=== PATIENT | male | born 1975 | race Caucasian/White ===

== ENCOUNTER 2024-04-28 14:32 | Inpatient (IN) | payer OTHER, MEDICAID ==
[~2024-04-28] VITALS: Ht 172.7 cm; Wt 75.7 kg
[2024-04-28 14:35] VITALS: BP_SYST 146; PULSE 135; RESP 26; TEMP 98.3; O2SAT 98
[2024-04-28] MEDS: MORPHINE 4 MG INJ. 4 MG/ML VIAL IM ONE (14:52)
[2024-04-28 15:06] LABS: BASOPHILS % (AUTO) 0.6 % (0.0-2.0); EOSINOPHILS # (AUTO) 0.1 K/uL (0.0-0.4); EOSINOPHILS % (AUTO) 1.3 % (0.0-4.0); HEMATOCRIT 36.9 % (36-54); HEMOGLOBIN 12.9 g/dL (14.0-18.0); LYMPHOCYTES # (AUTO) 0.7 K/uL (1.0-5.5); LYMPHOCYTES % (AUTO) 12.7 % (20.5-51.5); MEAN CORPUSCULAR HEMOGLOBIN 35 pg (27-31); MEAN CORPUSCULAR HGB CONC 35 % (32-36); MEAN CORPUSCULAR VOLUME 101 fL (79.0-98.0); MONOCYTES # (AUTO) 0.2 K/uL (0.0-1.0); MONOCYTES % (AUTO) 2.9 % (1.7-9.3); NEUTROPHILS # (AUTO) 4.9 K/uL (1.8-7.7); NEUTROPHILS % (AUTO) 82.5 % (40.0-70.0); PLATELET COUNT (AUTO) 222 K/uL (130-430); RED BLOOD CELL COUNT(AUTO) 3.64 MIL/uL (4.2-6.2); RED CELL DISTRIBUTION WIDTH 13.2 % (9.0-15.0); WHITE BLOOD COUNT (AUTO) 5.9 K/uL (4.8-10.8)
[2024-04-28 15:32] LABS: ALBUMIN 3.8 g/dL (3.4-4.8); BILIRUBIN,DIRECT 0.5 mg/dL (0.0-0.3); CALCIUM 8.7 mg/dL (8.4-11.0); CREATININE 1.67 mg/dL (0.55-1.30); POTASSIUM 3.4 mmol/L (3.5-5.1); TOTAL PROTEIN, SERUM 7.8 g/dL (6.4-8.3)
[2024-04-28] MEDS: NACL 0.9% 1,000 ML IV ONE (16:03)
[2024-04-28] MEDS: INSULIN REGULAR, HUMAN 10 UNITS/0.1 ML, 3 ML VIAL IVP ONE (16:04)
[2024-04-28] MEDS ORDERED: INSU100I4 SUBCUT (16:29)
[2024-04-28] MEDS ORDERED: INSU100I26 SUBCUT (16:29)
[2024-04-28] MEDS ORDERED: PANT40TA45 PO (16:29)
[2024-04-28] MEDS ORDERED: AMLO5TAB92 PO (16:29)
[2024-04-28] MEDS ORDERED: CLOP75TA32 PO (16:29)
[2024-04-28] MEDS ORDERED: BIMA2.5D5 LEFT EYE (16:29)
[2024-04-28] MEDS ORDERED: OFLO5DRO6 LEFT EYE (16:29)
[2024-04-28] MEDS ORDERED: INSU300I3 SUBCUT (16:29)
[2024-04-28] MEDS ORDERED: TRAM50TA2 PO (16:29)
[2024-04-28] MEDS ORDERED: ISOS30TA85 PO (16:29)
[2024-04-28] MEDS ORDERED: EZET10TA30 PO (16:29)
[2024-04-28] MEDS ORDERED: ATOR-1 PO (16:29)
[2024-04-28] MEDS ORDERED: ONDA-8 PO (16:29)
[2024-04-28] MEDS ORDERED: LISI20TA30 PO (16:29)
[2024-04-28] MEDS ORDERED: CYCL10TA25 PO (16:29)
[2024-04-28] MEDS ORDERED: NAPR-690 PO (16:29)
[2024-04-28] MEDS ORDERED: IBUP-1969 PO (16:29)
[2024-04-28] MEDS ORDERED: HYDR-3921 PO (16:29)
[2024-04-28] MEDS ORDERED: KETO5DRO LEFT EYE (16:29)
[2024-04-28] MEDS ORDERED: IPRATROPIUM BROM 0.5 MG/2.5 ML VIAL.NEB (ATROVENT) INH PRN (17:00)
[2024-04-28] MEDS ORDERED: MORPHINE 2 MG/ML INJ. SYRINGE IVP PRN (17:00)
[2024-04-28] MEDS ORDERED: ALBUTEROL SULFATE 0.083% 2.5 MG/3 ML VIAL.NEB INH PRN (17:00)
[2024-04-28] MEDS ORDERED: GLUCOSE (DEXTROSE) ORAL GEL -Adults PO PRN (17:15)
[2024-04-28] MEDS ORDERED: DEXTROSE 50% JECT 50 ML DISP.SYRIN IVP PRN (17:15)
[2024-04-28] MEDS: POTASSIUM CHLORIDE 20 MEQ TABLET.ER PO ONE (17:31)
[2024-04-28 17:35] VITALS: BP_SYST 170; PULSE 110; O2SAT 100
[2024-04-28] MEDS: MORPHINE 4 MG INJ. 4 MG/ML VIAL IVP PRN (19:56)
[2024-04-28 20:00] VITALS: BP_SYST 127; PULSE 110; RESP 18; TEMP 97.9; O2SAT 100
[2024-04-28] MEDS: LR 500 ML IV SCH (20:30)
[2024-04-28 20:47] VITALS: BP_SYST 127; PULSE 111; RESP 18; TEMP 97.9
[2024-04-28] MEDS ORDERED: ZOLPIDEM TARTRATE 5 MG TABLET PO PRN (21:00)
[2024-04-28] MEDS: CARVEDILOL 6.25 MG TABLET (COREG) PO SCH (21:37)
[2024-04-28] MEDS: INSULIN LISPRO SLIDING SCALE 100 UNITS/ML, 3 ML VIAL (humaLOG) SUBCUT PRN (21:41)
[2024-04-28] MEDS: INSULIN GLARGINE 100 UNITS/ML, 10 ML VIAL SUBCUT SCH (21:43)
[2024-04-28 22:12] LABS: BILIRUBIN,URINE NEGATIVE (NEGATIVE); BLOOD, URINE NEGATIVE (NEGATIVE); CLARITY/URINE CLEAR (CLEAR); COLOR,URINE YELLOW (YELLOW); GLUCOSE,URINE 3+ (NEGATIVE); KETONES,URINE NEGATIVE (NEGATIVE); LEUKOCYTE ESTERASE ,URINE NEGATIVE (NEGATIVE); NITRITE, URINE NEGATIVE (NEGATIVE); PROTEIN URINE NEGATIVE (NEGATIVE); UROBILINOGEN,URINE 0.2 (0.2-1.0)
[2024-04-28 22:37] LABS: BARBITURATE, URINE NEGATIVE (NEG <=200); BENZODIAZEPINE, URINE NEGATIVE (NEG <=150); COCAINE, URINE NEGATIVE (NEG <=150); METHAMPHETAMINES SCREEN,URINE NEGATIVE (NEG <=500); PHENCYCLIDINE SCREEN,URINE NEGATIVE (NEG <=25); UR TRICYCLIC ANTIDEPRESSANTS NEGATIVE (NEG <=300); URINE AMPHETAMINE NEGATIVE (NEG <=500); URINE METHADONE NEGATIVE (NEG <=200); URINE OXYCODONE SCREEN NEGATIVE (NEG <=100)
[2024-04-28 22:38] LABS: CANNABINOID, URINE POSITIVE (NEG <=50); OPIATE, URINE POSITIVE (NEG <=100)
[2024-04-28 23:08] LABS: BACTERIA,URINE FEW /HPF (None Seen); RBC,URINE NONE SEEN /HPF (0-3); WBC,URINE 0-3 /HPF (0-3)
[2024-04-28 23:09] LABS: MUCUS,URINE None Seen /LPF (None Seen)
[2024-04-29] VITALS (7 sets, daily range): BP systolic 148–170; PULSE 80–95; RESP 15–16; TEMP 97.2–97.8; O2SAT 97–100
[2024-04-29] MEDS: ONDANSETRON HCL 4 MG/2 ML VIAL IVP PRN (02:21)
[2024-04-29] MEDS: INSULIN Lispro 100 UNITS/ML, 3 ML VIAL (humaLOG) SUBCUT SCH (06:11)
[2024-04-29 07:27] LABS: BASOPHILS % (AUTO) 0.8 % (0.0-2.0); EOSINOPHILS # (AUTO) 0.2 K/uL (0.0-0.4); EOSINOPHILS % (AUTO) 4.4 % (0.0-4.0); HEMATOCRIT 34.7 % (36-54); HEMOGLOBIN 11.9 g/dL (14.0-18.0); LYMPHOCYTES # (AUTO) 0.7 K/uL (1.0-5.5); LYMPHOCYTES % (AUTO) 15.6 % (20.5-51.5); MEAN CORPUSCULAR HEMOGLOBIN 35 pg (27-31); MEAN CORPUSCULAR HGB CONC 34 % (32-36); MEAN CORPUSCULAR VOLUME 101 fL (79.0-98.0); MONOCYTES # (AUTO) 0.2 K/uL (0.0-1.0); NEUTROPHILS # (AUTO) 3.5 K/uL (1.8-7.7); NEUTROPHILS % (AUTO) 75.2 % (40.0-70.0); PLATELET COUNT (AUTO) 171 K/uL (130-430); RED BLOOD CELL COUNT(AUTO) 3.45 MIL/uL (4.2-6.2); RED CELL DISTRIBUTION WIDTH 13.4 % (9.0-15.0); WHITE BLOOD COUNT (AUTO) 4.7 K/uL (4.8-10.8)
[2024-04-29 08:03] LABS: INR 1.1 (0.80-1.20); PROTHROMBIN TIME 11.6 SECS (9.5-12.5)
[2024-04-29 08:08] LABS: ALBUMIN 3.3 g/dL (3.4-4.8); CALCIUM 8.5 mg/dL (8.4-11.0); CREATININE 0.96 mg/dL (0.55-1.30); PHOSPHORUS 3.3 mg/dL (2.7-4.5); POTASSIUM 3.9 mmol/L (3.5-5.1); THYROID STIMULATING HORMONE 0.34 uIu/mL (0.36-3.74); TOTAL BILIRUBIN 0.8 mg/dL (0.0-1.0); TOTAL PROTEIN, SERUM 6.9 g/dL (6.4-8.3)
[2024-04-29] MEDS: PANTOPRAZOLE SODIUM 40 MG TAB PO SCH (08:32)
[2024-04-29 08:46] LABS: HEMOGLOBIN A1C 9.34 % (<5.7)
[2024-04-29] MEDS: HEPARIN SODIUM,PORCINE 5,000 UNITS/ML VIAL SUBCUT ONE (11:58)
[2024-04-29] MEDS: LABETALOL HCL 20 MG/4 ML CARTRIDGE IVP PRN (12:12)
[2024-04-29] MEDS ORDERED: NALOXONE HCL 0.4 MG/ML AMP (NARCAN) IVP PRN (13:15)
[2024-04-29] MEDS: oxyCODONE HCL 5 MG TABLET PO PRN (13:24)
[2024-04-29] MEDS: amLODIPine BESYLATE 10 MG TABLET PO ONE (13:28)
[2024-04-29] MEDS: CARVEDILOL 12.5 MG TABLET (COREG) PO SCH (20:45)
[2024-04-29] MEDS: HEPARIN SODIUM,PORCINE 5,000 UNITS/ML VIAL SUBCUT SCH (20:50)
[2024-04-29] MEDS: INSULIN GLARGINE 100 UNITS/ML, 10 ML VIAL SUBCUT SCH (20:53)
[2024-04-29] MEDS: MORPHINE 4 MG INJ. 4 MG/ML VIAL IVP PRN (22:13)
[2024-04-29] MEDS: LR 1,000 ML IV SCH (23:09)
[2024-04-30] VITALS (8 sets, daily range): BP systolic 120–163; PULSE 87–91; RESP 14–18; TEMP 97.4–98.7; O2SAT 99–100
[2024-04-30 06:30] LABS: BASOPHILS % (AUTO) 0.6 % (0.0-2.0); EOSINOPHILS # (AUTO) 0.2 K/uL (0.0-0.4); EOSINOPHILS % (AUTO) 4.2 % (0.0-4.0); HEMATOCRIT 35.3 % (36-54); HEMOGLOBIN 12.1 g/dL (14.0-18.0); LYMPHOCYTES # (AUTO) 1.2 K/uL (1.0-5.5); LYMPHOCYTES % (AUTO) 22.5 % (20.5-51.5); MEAN CORPUSCULAR HEMOGLOBIN 35 pg (27-31); MEAN CORPUSCULAR HGB CONC 34 % (32-36); MEAN CORPUSCULAR VOLUME 101 fL (79.0-98.0); MONOCYTES # (AUTO) 0.3 K/uL (0.0-1.0); MONOCYTES % (AUTO) 6.2 % (1.7-9.3); NEUTROPHILS # (AUTO) 3.5 K/uL (1.8-7.7); NEUTROPHILS % (AUTO) 66.5 % (40.0-70.0); PLATELET COUNT (AUTO) 164 K/uL (130-430); RED CELL DISTRIBUTION WIDTH 13.1 % (9.0-15.0); WHITE BLOOD COUNT (AUTO) 5.3 K/uL (4.8-10.8)
[2024-04-30 06:49] LABS: ALBUMIN 3.2 g/dL (3.4-4.8); CALCIUM 8.8 mg/dL (8.4-11.0); CREATININE 0.86 mg/dL (0.55-1.30); POTASSIUM 4.2 mmol/L (3.5-5.1); TOTAL BILIRUBIN 0.8 mg/dL (0.0-1.0); TOTAL PROTEIN, SERUM 6.8 g/dL (6.4-8.3)
[2024-04-30 07:08] LABS: HEPATITIS A AB, IgM Negative (Negative); HEPATITIS B CORE AB, IgM Negative (Negative); HEPATITIS B SURFACE AG Negative (Negative); HEPATITIS C VIRUS AB Non Reactive (Non Reactive)
[2024-04-30] MEDS ORDERED: SERTRALINE HCL 50 MG TABLET PO SCH (09:00)
[2024-04-30] MEDS: amLODIPine BESYLATE 10 MG TABLET PO SCH (09:22)
[2024-04-30] MEDS: ARIPiprazole 5 MG TAB PO SCH (09:23)
[2024-04-30] MEDS: SERTRALINE HCL 50 MG TABLET PO ONE (10:50)
[2024-04-30] MEDS: DOCUSATE SODIUM 100 MG CAPSULE PO SCH (21:16)
[2024-04-30] MEDS: LORazepam 2 MG/ML VIAL IVP PRN (22:06)
[2024-05-01 00:47] VITALS: BP_SYST 94; PULSE 95; RESP 18; TEMP 96.9; O2SAT 94
[2024-05-01 04:00] VITALS: BP_SYST 131; PULSE 98; RESP 18; TEMP 97.8; O2SAT 97
[2024-05-01 07:52] LABS: BASOPHILS % (AUTO) 0.4 % (0.0-2.0); EOSINOPHILS # (AUTO) 0.1 K/uL (0.0-0.4); EOSINOPHILS % (AUTO) 2.7 % (0.0-4.0); HEMATOCRIT 36.2 % (36-54); HEMOGLOBIN 12.5 g/dL (14.0-18.0); LYMPHOCYTES # (AUTO) 0.8 K/uL (1.0-5.5); LYMPHOCYTES % (AUTO) 15.7 % (20.5-51.5); MEAN CORPUSCULAR HEMOGLOBIN 35 pg (27-31); MEAN CORPUSCULAR HGB CONC 34 % (32-36); MEAN CORPUSCULAR VOLUME 101 fL (79.0-98.0); MONOCYTES # (AUTO) 0.4 K/uL (0.0-1.0); MONOCYTES % (AUTO) 6.9 % (1.7-9.3); NEUTROPHILS # (AUTO) 3.9 K/uL (1.8-7.7); NEUTROPHILS % (AUTO) 74.3 % (40.0-70.0); PLATELET COUNT (AUTO) 154 K/uL (130-430); RED BLOOD CELL COUNT(AUTO) 3.59 MIL/uL (4.2-6.2); RED CELL DISTRIBUTION WIDTH 13.2 % (9.0-15.0); WHITE BLOOD COUNT (AUTO) 5.3 K/uL (4.8-10.8)
[2024-05-01 08:00] LABS: CALCIUM 8.4 mg/dL (8.4-11.0); CREATININE 1.02 mg/dL (0.55-1.30); POTASSIUM 3.8 mmol/L (3.5-5.1); TOTAL BILIRUBIN 0.7 mg/dL (0.0-1.0); TOTAL PROTEIN, SERUM 6.4 g/dL (6.4-8.3)
[2024-05-01] MEDS: SERTRALINE HCL 50 MG TABLET PO SCH (09:05)
[2024-05-01 09:30] VITALS: PULSE 89; O2SAT 97
[2024-05-01 12:45] VITALS: BP_SYST 137; PULSE 88; RESP 17; TEMP 97.6; O2SAT 97
[2024-05-01 16:53] VITALS: BP_SYST 135; PULSE 92; RESP 18; TEMP 97.7; O2SAT 96
[2024-05-01 20:00] VITALS: BP_SYST 114; PULSE 102; RESP 18; TEMP 98; O2SAT 99
[2024-05-02] VITALS: BP_SYST 144; PULSE 91; RESP 18; TEMP 98.2
[2024-05-02] MEDS: oxyCODONE HCL 5 MG TABLET PO PRN (00:50)
[2024-05-02 06:46] LABS: BASOPHILS % (AUTO) 0.5 % (0.0-2.0); EOSINOPHILS # (AUTO) 0.1 K/uL (0.0-0.4); EOSINOPHILS % (AUTO) 1.9 % (0.0-4.0); HEMOGLOBIN 12.6 g/dL (14.0-18.0); LYMPHOCYTES # (AUTO) 1.1 K/uL (1.0-5.5); LYMPHOCYTES % (AUTO) 18.8 % (20.5-51.5); MEAN CORPUSCULAR HEMOGLOBIN 35 pg (27-31); MEAN CORPUSCULAR HGB CONC 34 % (32-36); MEAN CORPUSCULAR VOLUME 102 fL (79.0-98.0); MONOCYTES # (AUTO) 0.5 K/uL (0.0-1.0); MONOCYTES % (AUTO) 8.2 % (1.7-9.3); NEUTROPHILS # (AUTO) 4.1 K/uL (1.8-7.7); NEUTROPHILS % (AUTO) 70.6 % (40.0-70.0); PLATELET COUNT (AUTO) 171 K/uL (130-430); RED BLOOD CELL COUNT(AUTO) 3.63 MIL/uL (4.2-6.2); RED CELL DISTRIBUTION WIDTH 13.1 % (9.0-15.0); WHITE BLOOD COUNT (AUTO) 5.8 K/uL (4.8-10.8)
[2024-05-02 07:15] LABS: ALBUMIN 3.2 g/dL (3.4-4.8); CALCIUM 8.6 mg/dL (8.4-11.0); CREATININE 1.02 mg/dL (0.55-1.30); POTASSIUM 4.1 mmol/L (3.5-5.1); TOTAL BILIRUBIN 0.8 mg/dL (0.0-1.0)
[2024-05-02 07:50] VITALS: O2SAT 96
[2024-05-02 08:00] VITALS: BP_SYST 160; PULSE 110; RESP 16; TEMP 97.1; O2SAT 98
[2024-05-02] MEDS ORDERED: HYDR-3917 PO ×2 (10:51→16:37)
[2024-05-02] MEDS ORDERED: SERT50TA PO (11:16)
[2024-05-02] MEDS ORDERED: ARIP5TAB42 PO (11:16)
[2024-05-02 12:00] VITALS: BP_SYST 150; PULSE 101; RESP 16; TEMP 98.3; O2SAT 98
[2024-05-02 14:33] VITALS: BP_SYST 148; PULSE 109; RESP 16; TEMP 98.2; O2SAT 99
[2024-05-02 16:00] VITALS: BP_SYST 145; PULSE 105; RESP 14; TEMP 98.3; O2SAT 99
== END 2024-05-02 19:05 | disposition home or self-care (01) | DRG 542 ==
LOC: SED 14:32 → STU 17:21 → SMU 04-30 15:50
PROVIDERS: ADMIT Internal Medicine; ATTEND Internal Medicine
DX: M48.56XA Collapsed vertebra, not elsewhere classified, lumbar region, initial encounter for fracture (principal); N17.0 Acute kidney failure with tubular necrosis; E87.1 Hypo-osmolality and hyponatremia; K86.0 Alcohol-induced chronic pancreatitis; R45.851 Suicidal ideations; F33.1 Major depressive disorder, recurrent, moderate; M48.54XA Collapsed vertebra, not elsewhere classified, thoracic region, initial encounter for fracture; E11.65 Type 2 diabetes mellitus with hyperglycemia; E87.6 Hypokalemia; I10 Essential (primary) hypertension; F10.120 Alcohol abuse with intoxication, uncomplicated; R74.01 Elevation of levels of liver transaminase levels; Z79.899 Other long term (current) drug therapy; Z88.8 Allergy status to other drugs, medicaments and biological substances; H54.8 Legal blindness, as defined in USA
CPT/HCPCS: 36415; 71045; 72128; 72131; 80048; 80053; 80061; 80074; 80076; 80307; 81000; 81001; 81015; 82009; 82550; 82948; 83037; 83690; 83735; 84100; 84443; 84484; 85025; 85610; 85730; 93005; 94070; 94760; 96372; 99285; G0378; G0480; G0481; G0482; J1644; J1815; J2060; J2270; J2405